=== PATIENT | female | born 1985 | race Caucasian/White ===

== ENCOUNTER 2017-03-05 13:51 | Inpatient (IN) | payer OTHER ==
--- NOTE | ~2017-03-05 | HP ---
Unit #: [id number] #: [id number] Patient: TANIA ALLISON [id number] [place] [address] [id number] I MR#: [id number] NAME: TANIA ALLISON. ROOM: P173 Age: 31 Sex: F Admission Date: 03/05/2017 : 1985 Attending Physician: Jose Nathan M.D. Admitting Physician: Jose Nathan M.D. Primary Care Physician: Saray Son Aprn HISTORY AND PHYSICAL HISTORY OF PRESENT ILLNESS Tania is a 31-year-old admitted to [facility] because of her polysubstance abuse which include IV methamphetamine, cocaine and alcohol. PAST MEDICAL HISTORY 1. Long history of poly illicit substance abuse to include IV meth, heroin and cocaine 2. History of cervical dysplasia PAST SURGICAL HISTORY 1. Inguinal hernia repair 2. Tubal ligation with reversal 3. Appendectomy 4. LEEP procedure 5. Cervical conization ALLERGIES Codeine, phenergan SOCIAL HISTORY Smokes one pack per day. Drinks at least a 12 pack of beer on a daily basis and admits to a long history of poly illicit substance abuse to include IV drugs. FAMILY HISTORY Medically noncontributory. REVIEW OF SYSTEMS CONSTITUTIONAL: No fever or chills. HEENT: Denies any sore throat, ear pain or runny nose. CARDIOVASCULAR: Denies chest pain, irregular heart rhythm or palpitations. CHEST: Denies shortness of breath or cough. No hemoptysis. GASTROINTESTINAL: Denies nausea, vomiting, diarrhea or chronic constipation. ENDOCRINE: Denies history of increased thirst or urination. No recent significant weight loss or gain. GENITOURINARY: Denies dysuria, frequency, or hematuria. SKIN: Denies any rashes. HEMATOLOGIC: Denies history of increased bleeding or bruising. MUSCULOSKELETAL: Denies any hot, swollen joints. No generalized muscle pain. NEUROLOGIC: Denies problems with vision or speech. No frequent, severe headaches. No numbness, tingling or weakness in any extremities. Denies Unit #: [id number] #: [id number] Patient: TANIA ALLISON loss of bladder or bowel control. CURRENT MEDICATIONS 1. Milk of Magnesia p.r.n. 2. Maalox p.r.n. 3. Tylenol p.r.n. PHYSICAL EXAMINATION GENERAL: Alert, well-nourished, no apparent distress. VITAL SIGNS: Blood pressure 110/72, heart rate 80, respirations 16, temperature 98.6 WEIGHT: 120 HEIGHT 5 feet 3 inches SKIN: Warm and dry without rash or lesion. HEENT: Normocephalic. TMs not viewed. Oral and nasal passages clear. Conjunctivae clear. PERRLA. EOMs intact. NECK: Supple without lymphadenopathy or thyromegaly. HEART: Regular rate and rhythm without murmur. LUNGS: Clear. ABDOMEN: Soft, nontender. : Not done. EXTREMITIES: No evidence of cyanosis, clubbing or edema. Moves all without focal deficit. NEUROLOGICAL: Grossly within normal limits. Cranial Nerves: II: Visual weir are intact. III, IV AND : Extraocular movements are intact. Pupils are equal, round and reactive to light. V: Facial sensation is grossly normal. VII: Facial movements and expression are normal. VIII: Auditory acuity grossly intact. IX, X: Uvula is midline. Phonation is normal. XI: Patient shrugs shoulders and turns head normally. XII: Tongue protrudes in the midline. Sensory and Motor Function: Sensory and motor sensation is grossly normal. Motor: moves all extremities well. Coordination: Gait is normal. Deep Tendon Reflexes: Intact. MEDICAL ASSESSMENT AND PLAN Psychiatric admission RECOMMENDATIONS 1. Psychiatric, per psychiatrist. 2. Medical, I see no contraindications to participating in facility's activities. MEDICAL PROGNOSIS Good. MEDICAL CONDITION Stable. Dictated by... Raine Stallings P.A.-C. Unit #: [id number] #: [id number] Patient: TANIA ALLISON JADA/salma TD: 03/05/2017 20:28 JOB #: [id number] HISTORY AND PHYSICAL Page 1 of 1 X Raine Stallings HISTORY AND PHYSICAL
--- NOTE | ~2017-03-05 | DS ---
Unit #: [id number] #: [id number] Patient: TANIA ALLISON [id number] [place] [address] [id number] MR#: [id number] NAME: TANIA ALLISON. ROOM: P173 Age: 31 Sex: F Admission Date: 03/05/2017 : 1985 Discharge Date: 03/08/2017 Attending Physician: Jose Nathan M.D. Primary Care Physician: Saray Son Aprn DISCHARGE SUMMARY REASON FOR ADMISSION The patient is a 31-year-old single white female, admitted to the [facility] unit with a history of alcohol, methamphetamine, and heroin use. HOSPITAL COURSE The patient was admitted to the [facility] unit and placed on routine detoxification protocol for alcohol and opioids. She exhibited mild symptoms of opioid withdrawal, but was otherwise pleasant and cooperative. During her stay in the hospital, she was restarted on previously effective medication regimen including Effexor, Abilify, and Topamax. By 03/08/2017, the patient denied suicidal ideation. She was in bright spirits and stated that she had made arrangements to go to "[facility]." As per her request, discharge was ordered. FINAL DIAGNOSES Dysthymic disorder, alcohol use disorder, methamphetamine use disorder, opioid use disorder, status post tubal ligation with reversal. DISPOSITION ON DISCHARGE The patient is discharged on the following medications; Effexor XR 37.5 mg daily for depression, Topamax 50 mg nightly for anxiety and mood stabilization, Abilify 5 mg daily for depression. DISCHARGE INSTRUCTIONS No dietary or physical restrictions were placed upon the patient at the time of discharge. FOLLOWUP Followup will take place through the auspices of "[facility]." PROGNOSIS The patient's prognosis is considered fair. Dictated by... Jose Nathan M.D. CB/gage TD: 03/08/2017 23:55 JOB #: [id number] Unit #: [id number] #: [id number] Patient: TANIA ALLISON DISCHARGE SUMMARY Page 1 of 1 X Jose Nathan MD X DISCHARGE SUMMARY
--- NOTE | ~2017-03-05 | PA ---
Unit #: [id number] #: [id number] Patient: TANIA ALLISON [id number] [place] [address] [id number] I MR#: [id number] NAME: TANIA ALLISON. ROOM: P173 Age: 31 Sex: F Admission Date: 03/05/2017 : 1985 Date of Assessment: Attending Physician: Jose Nathan M.D. Admitting Physician: Jose Nathan M.D. Primary Care Physician: Saray Son Aprn PSYCHIATRIC ASSESSMENT IDENTIFYING INFORMATION The patient is a 32-year-old single white female, admitted to the [facility] unit with a history of depressed mood and alcohol and methamphetamine and heroin use. CHIEF COMPLAINT None given. INFORMANTS The patient, the patient's reliability is fair. HISTORY OF PRESENT ILLNESS The patient is a 31-year-old white female, who presented to this facility yesterday voicing positive suicidal ideation with a plan to overdose. The patient reports that she has been drinking about a 12 pack of liquor on a daily basis and is also using methamphetamine. She also has a history of abuse of heroin. The patient has been treated in the past at both [facility] and [facility], and while at [facility], was prescribed Effexor, Topamax, and Abilify, medications on which she states she did well. The patient reports that she currently lives alone. Recent stressor was the fact that a man with whom she had been attempting to have a child had got another woman . 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 She states "I never thought I would be a crack" and is very hopeless regarding her current living situation. PAST PSYCHIATRIC HISTORY As above. PAST MEDICAL HISTORY The patient is status post fallopian tube ligation reversal. MEDICATIONS None at this time. ALLERGIES Reglan, codeine, and Phenergan. FAMILY HISTORY Noncontributory. Unit #: [id number] #: [id number] Patient: TANIA ALLISON SOCIAL HISTORY The patient lives alone. As noted previously, she is a college graduate, but is presently unemployed. She reports substance use as noted previously and is a smoker. MENTAL STATUS EXAMINATION At this time reveals the patient to be a well-developed, well-nourished white female, appearing her stated age. She appears to be in moderate physical distress related to alcohol withdrawal during interview. She is awake and alert in all spheres. Her mood is dysphoric. Her affect is constricted. Speech is generally well coherent. There are no gross deficits in memory or cognition noted. Intelligence is judged to be in the average range based on fund of knowledge. The patient is cooperative throughout the interview. She is currently endorsing positive suicidal ideation. She denies homicidal ideation. She denies any psychotic symptoms. Her judgment and insight appear to be reasonably intact. ASSETS Motivation for change. LIABILITIES Lack of resources. DIAGNOSTIC IMPRESSION Dysthymic disorder, alcohol use disorder, methamphetamine use disorder, opioid use disorder, and status post tubal ligation with reversal. TREATMENT PLAN The patient remains hospitalized for safety and stabilization. We will restart the previously prescribed effective medications of the patient, which include Abilify, Effexor, and Topamax, medications which were started at "[facility] in [place]." Routine detoxification protocol for alcohol was put in place and suicide precautions are likewise in place. ESTIMATED LENGTH OF STAY IN THE HOSPITAL 5 to 7 days. The patient is expressing interest in returning to residential chemical dependency treatment. Dictated by... Jose Nathan M.D. PAYAM/gage TD: 03/06/2017 20:14 JOB #: [id number] PSYCHIATRIC ASSESSMENT Page 1 of 1 X Jose Nathan MD X PSYCHIATRIC ASSESSMENT
--- NOTE | ~2017-03-05 | PN ---
Unit #: [id number] #: [id number] Patient: TANIA ALLISON [id number] [facility] [address] [place] [address] [id number] I MR#: [id number] NAME: TANIA ALLISON ROOM: P173 Age: 31 Sex: F Admission Date: 03/05/2017 : 1985 Attending Physician: Jose Nathan M.D. Admitting Physician: Jose Nathan M.D. Primary Care Physician: Saray WALKER PROGRESS NOTES DATE 03/07/2017 DISCUSSION The patient is a bit brighter today. She reports that she did have some episodes of lightheadedness and nausea yesterday, but is otherwise in good spirits. She is expressing interest in residential chemical dependence treatment, but these plans are at this point being thwarted by her lack of a government-issued ID. Dictated by... Jose Nathan M.D. CB/bzg TD: 03/07/2017 14:08 JOB #: [id number] [facility] PROGRESS NOTES Page 1 of 1 X Jose Nathan MD X PROGRESS NOTE
[~2017-03-05 13:51] MED LIST: MIDOL CAPLET1 EACH; MIRALAX17 GM; ZANTAC; ZITHROMAX PO; [UNRECOGNIZED DRUG - OTHER] PO
[2017-03-06 09:39] LABS: BASOPHIL% 0.4 % (0-2.5); EOSINOPHIL# 0.6 X10e3 (0-0.7); EOSINOPHIL% 8.9 % (0.0-7.0); HEMATOCRIT 43.5 % (35.0-45.0); HEMOGLOBIN 14.2 gm/dL (12.0-16.0); LYMPHOCYTE# 3.2 X10e3 (1.0-3.5); LYMPHOCYTE% 49.5 % (17.0-45.0); MEAN CELL VOLUME 88.6 FL (83-96); MEAN CORPUSCULAR HGB CONC 32.7 g/dL (30-36); MEAN PLATELET VOLUME 9.9 FL (6.5-11.5); MONOCYTE# 0.4 X10e3 (0-1.0); MONOCYTE% 6.3 % (3.0-12.0); NEUTROPHIL# 2.3 X10e3 (1.5-7.1); NEUTROPHIL% 34.9 % (40-75); PLATELET COUNT 211 X10e3 (140-420); RED CELL DISTRIBUTION WIDTH 14.1 % (11.0-15.5); WHITE BLOOD COUNT 6.5 X10e3 (4.0-10.5)
[2017-03-06 09:54] LABS: URINE APPEARANCE CLEAR; URINE BILIRUBIN NEG (NEG); URINE BLOOD NEG (NEG); URINE COLOR YELLOW; URINE GLUCOSE NEG (NEG); URINE KETONE NEG (NEG); URINE LEUKOCYTE ESTERASE NEG (NEG); URINE NITRATE NEG (NEG); URINE PROTEIN NEG (NEG); URINE SPECIFIC GRAVITY 1.015 (1.003-1.035); URINE UROBILINOGEN 0.2 MG/DL (NEG)
[2017-03-06 10:01] LABS: ALBUMIN SERUM 3.7 g/dL (3.5-5.0); BILIRUBIN,TOTAL 0.7 mg/dL (0.2-2.0); BUN/CREATININE RATIO 12.5; CALCIUM SERUM 9.1 mg/dL (8.4-10.2); CREATININE SERUM 0.8 mg/dL (0.6-1.4); DIFF IND NO; GLOM FILT RATE Estimated 97.6 mL/min (>60); POTASSIUM 4.3 mmol/L (3.5-5.1); PROTEIN TOTAL SERUM 6.6 g/dL (6.0-8.3)
[2017-03-06 10:04] LABS: THYROID STIMULATING HORMONE 1.09 uIU/ml (0.34-5.60)
[2017-03-06 10:11] LABS: FREE THYROXIN (T4) 0.77 ng/dL (0.58-1.64)
[2017-03-06 10:35] LABS: AMPHETAMINE POS (NEG); BARBITURATES NEG (NEG); BENZODIAZEPINES NEG (NEG); COCAINE NEG (NEG); MARIJUANA NEG (NEG); OPIATES NEG (NEG); TRICYCLIC ANTIDEPRESSANTS NEG (NEG); U METHADONE NEG (NEG)
[2017-03-12 18:55] LABS: HA AB IGM (HEPPAN) Nonreactive (()); HB CORE AB IGM (HEPPAN) Nonreactive (Nonreactive); HB S AG (HEPPAN) Reactive (Nonreactive); HEP C AB (HEPPAN) Nonreactive (Nonreactive); HEP C AB SIGNAL TO CUTOFF 0.02 ratio (<1.00)
== END 2017-03-08 15:30 | disposition home or self-care (01) | DRG 897 ==
LOC: P1E 13:51
PROVIDERS: Specialist
PROC: HZ2ZZZZ Detoxification Services for Substance Abuse Treatment (ICD-10-PCS; principal; 2017-03-05)
DX: F10.10 Alcohol abuse, uncomplicated (principal); F11.10 Opioid abuse, uncomplicated; F14.10 Cocaine abuse, uncomplicated; F34.1 Dysthymic disorder; F15.10 Other stimulant abuse, uncomplicated; Z88.5 Allergy status to narcotic agent; Z88.8 Allergy status to other drugs, medicaments and biological substances; F17.210 Nicotine dependence, cigarettes, uncomplicated
CPT/HCPCS: 80053; 80074; 80307; 81003; 84439; 84443; 84703; 85025; 87806

== ENCOUNTER 2017-06-03 23:03 | Emergency (ER) | payer OTHER ==
[~2017-06-03] VITALS: Ht 160 cm; Wt 59.0 kg
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
[2017-06-04 01:15] LABS: BASOPHIL# 0.1 X10e3 (0-0.3); BASOPHIL% 0.5 % (0-2.5); EOSINOPHIL# 0.3 X10e3 (0-0.7); EOSINOPHIL% 2.8 % (0.0-7.0); HEMATOCRIT 26.2 % (35.0-45.0); HEMOGLOBIN 8.8 gm/dL (12.0-16.0); LYMPHOCYTE# 2.3 X10e3 (1.0-3.5); LYMPHOCYTE% 21.5 % (17.0-45.0); MEAN CELL VOLUME 86.8 FL (83-96); MEAN CORPUSCULAR HGB CONC 33.4 g/dL (30-36); MEAN PLATELET VOLUME 8.3 FL (6.5-11.5); MONOCYTE# 1.3 X10e3 (0-1.0); MONOCYTE% 12.2 % (3.0-12.0); NEUTROPHIL# 6.7 X10e3 (1.5-7.1); PLATELET COUNT 284 X10e3 (140-420); RED BLOOD COUNT 3.02 X10e (3.90-5.30); RED CELL DISTRIBUTION WIDTH 15.1 % (11.0-15.5); WHITE BLOOD COUNT 10.6 X10e3 (4.0-10.5)
[2017-06-04 01:17] LABS: DIFF IND NO
[2017-06-04 01:37] LABS: INR 0.9; PARTIAL THROMBOPLASTIN TIME 27.4 SECONDS (23.5-31.3); PROTHROMBIN TIME (PATIENT) 10.1 SECONDS (10.0-11.7)
[2017-06-04 01:38] LABS: ALBUMIN SERUM 2.9 g/dL (3.5-5.0); BILIRUBIN, DIRECT 0.5 mg/dL (0.0-0.2); BILIRUBIN,INDIRECT 1.2 mg/dL (0.0-0.9); BILIRUBIN,TOTAL 1.7 mg/dL (0.2-2.0); BUN/CREATININE RATIO 12.5; CALCIUM SERUM 8.3 mg/dL (8.4-10.2); CREATININE SERUM 0.8 mg/dL (0.6-1.4); GLOM FILT RATE Estimated 97.6 mL/min (>60); POTASSIUM 4.4 mmol/L (3.5-5.1); PROTEIN TOTAL SERUM 6.9 g/dL (6.0-8.3)
== END 2017-06-04 04:50 | disposition short-term general hospital (02) ==
LOC: CED 23:03
PROVIDERS: Emergency Medicine
DX: S36.113A Laceration of liver, unspecified degree, initial encounter (principal); W18.30XA Fall on same level, unspecified, initial encounter
CPT/HCPCS: 36415; 71275; 74177; 80048; 80076; 83605; 83690; 84703; 85025; 85610; 85730; 87040; 96361; 96365; 96367; 96375; 96376; 99285; J0696; J1170; J2405; J2543; Q9967